=== PATIENT | female | born 2000 | race Caucasian/White ===

== ENCOUNTER 2024-01-11 21:42 | Emergency (ER) | payer BC, SELFPAY ==
--- NOTE | 2024-01-11 21:46 | CRLHL7_ITS ---
For Patients: As a result of the Century Cures Act, medical imaging exams and procedure reports are released immediately into your electronic medical record. You may view this report before your referring provider. If you have questions, please contact your health care provider. INDICATION: Pelvic pain TECHNIQUE: Ultrasound pelvis transvaginal. Endovaginal imaging was performed to better visualize the endometrium and ovaries. Real-time smith scale sonographic images with spectral and color Doppler imaging of the ovaries were obtained. COMPARISON: None FINDINGS: Uterus: 6 x 4.4 x 3.4 cm. Normal echotexture of the myometrium noted with no masses are seen. Endometrium: 10 mm. No sign of endometrial mass or fluid present. Nabothian cysts are present measuring up to 12 mm. Right ovary: 4.8 x 2 x 3.3 cm with ellipsoidal volume estimate of 17 mL. The right ovary is normal in appearance and echotexture. Arterial blood flow is seen within the right ovary. Left ovary: 4 x 2 x 2.8 cm with ellipsoidal volume estimate of 12 mL. Multiple peripheral follicles are seen within the left ovary. Arterial blood flow seen within the left ovary. Cul-de-sac: Trace fluid is seen in the cul-de-sac. IMPRESSION: 1. Bilateral ovaries are enlarged with numerous follicles present suggestive of polycystic ovarian syndrome. Dictated by Aaron Cabrera MD @ 01/11/2024 11:04:13 PM Dictated by: Aaron Cabrera MD @ 01/11/2024 23:09:30 (Electronically Signed)
[2024-01-11 21:50] VITALS: BP 140/79; PULSE 76; RESP 16; TEMP 36.1; O2SAT 100; BMI 25.7
--- NOTE | 2024-01-11 22:58 | ED_ITS ---
HPI - General Adult General Chief complaint: Abdominal Pain Stated complaint: poss ovarian torsion per [facility] Time Seen by Provider: 01/11/24 21:45 Source: patient Mode of arrival: ambulatory Limitations: no limitations History of Present Illness HPI narrative: Patient is a 23-year-old female with a history of ovarian cysts presenting today with left lower quadrant pain. Patient was evaluated at the [place] [facility] with laboratory evaluation and an abdominal CT scan which according to the patient were unremarkable. She was sent to our ER to rule out ovarian torsion with ultrasound. Patient states that the pain started yesterday she did vomit yesterday 1 time has not vomited today. Feels little bit nauseated on and off. She denies any fevers or chills. Nothing seems to make the pain better or worse. Although she does believe the pain is slightly better today than it was yesterday. She does not have any increased urinary frequency or urgency. She does not have any diarrhea or constipation. She is currently not on control as a control she was has been on previously has not made her feel well. Again she presents for a pelvic ultrasound. Related Data Home Medications ?Medication ?Instructions ?Recorded ?Confirmed No Known Home Medications 11/21/23 11/21/23 Allergies Allergy/AdvReac Type Severity Reaction Status Date / Time No Known Drug Allergies Allergy Verified 11/21/23 13:17 Review of Systems Status of ROS: Reports: 10 or more systems reviewed and unremarkable except as noted in History and below Exam Narrative: Exam Narrative: Overweight, well-developed patient in no acute distress. Alert and oriented. Answers questions appropriately. Mood and affect are appropriate. Thoughts are goal oriented and rational. No tangential or magical thinking noted. Patient speaks in full sentences without needing to catch her breath. HEENT: Normocephalic atraumatic. Pupils are equally round reactive to light. Extraocular muscles are intact. Conjunctivae are moist without any icterus noted. Moist mucous membranes. Cardiovascular: Heart is regular rate and rhythm S1 and S2 are present without any murmurs. Lungs: Clear to auscultation bilaterally. Abdomen: Soft and nondistended with normal bowel sounds. No guarding or rebound. No masses or organomegaly appreciated. Patient has left lower quadrant tenderness. Extremities: Bilateral lower extremities are without edema. Skin: Well perfused without any obvious rashes. Const: Vital Signs, click to edit/add: Vital Signs - 24 hr 01/11/24 21:50 Temperature 96.9 F L Pulse Rate [Pulse Oximeter] 76 Respiratory Rate 16 Blood Pressure [Ri ght Upper Arm] 140/79 H Pulse Oximetry 100 Oxygen Delivery Me thod Room Air Course Course ED Course: Ultrasound was obtained: No evidence of torsion. Multiple follicles bilaterally suggestive of polycystic ovarian disease. Vital Signs Vital signs: Initial Vital Signs Temperature 96.9 F L 01/11/24 21:50 Temperature Source Temporal Artery Scan 01/11/24 21:50 Pulse Rate 76 01/11/24 21:50 Respiratory Rate 16 01/11/24 21:50 Blood Pressure 140/79 H 01/11/24 21:50 Blood Pressure Mean 99 01/11/24 21:50 Blood Pressure Position Supine 01/11/24 21:50 Pulse Oximetry 100 01/11/24 21:50 Oxygen Delivery Method Room Air 01/11/24 21:50 Vital Signs Temperature 96.9 F L 01/11/24 21:50 Pulse Rate 76 01/11/24 21:50 Respiratory Rate 16 01/11/24 21:50 Blood Pressure 140/79 H 01/11/24 21:50 Pulse Oximetry 100 01/11/24 21:50 Oxygen Delivery Method Room Air 01/11/24 21:50 Temperature 96.9 F L 01/11/24 21:50 Pulse Rate 76 01/11/24 21:50 Respiratory Rate 16 01/11/24 21:50 Blood Pressure 140/79 H 01/11/24 21:50 Pulse Oximetry 100 01/11/24 21:50 Oxygen Delivery Method Room Air 01/11/24 21:50 Medical Decision Making MDM Narrative Medical decision making narrative: 23-year-old female with left lower quadrant abdominal pain. No evidence of abnormality causing this pain noted today. Patient will be given information to set up an appointment with OBGYN follow-up. Patient does not want any pain medications at this time. Imaging Data US - abdomen: Attestation: I have reviewed the pertinent imaging results. Radiologist's impression: INDICATION: Pelvic pain TECHNIQUE: Ultrasound pelvis transvaginal. Endovaginal imaging was performed to better visualize the endometrium and ovaries. Real-time smith scale sonographic images with spectral and color Doppler imaging of the ovaries were obtained. COMPARISON: None FINDINGS: Uterus: 6 x 4.4 x 3.4 cm. Normal echotexture of the myometrium noted with no masses are seen. Endometrium: 10 mm. No sign of endometrial mass or fluid present. Nabothian cysts are present measuring up to 12 mm. Right ovary: 4.8 x 2 x 3.3 cm with ellipsoidal volume estimate of 17 mL. The right ovary is normal in appearance and echotexture. Arterial blood flow is seen within the right ovary. Left ovary: 4 x 2 x 2.8 cm with ellipsoidal volume estimate of 12 mL. Multiple peripheral follicles are seen within the left ovary. Arterial blood flow seen within the left ovary. Cul-de-sac: Trace fluid is seen in the cul-de-sac. IMPRESSION: 1. Bilateral ovaries are enlarged with numerous follicles present suggestive of polycystic ovarian syndrome. Discharge Plan Discharge Clinical Impression: Abdominal pain Patient Disposition: Home, Self-Care Condition: Stable Additional Instructions: Ultrasound does not show any evidence of ovarian torsion. There are multiple cysts on both ovaries. You will be given the phone number to contact our women's health office to make an appointment with an OBGYN this coming week. Return to the ER if you develop a fever or worsening symptoms. Prescriptions: No Action No Known Home Medications Follow Up/Referrals: Provider,Not a Local [Primary Care Provider] - Stand Alone Forms: [employer] Info Instructions
[2024-01-11 23:19] VITALS: BP 112/70; PULSE 59; RESP 18; O2SAT 98
== END 2024-01-11 23:22 | disposition home or self-care (01) ==
PROVIDERS: Emergency Provider Family Medicine
DX: R10.9 Unspecified abdominal pain (principal)
CPT/HCPCS: 76830; 93976; 99284